=== PATIENT | female | born 1995 | race Caucasian/White ===

== ENCOUNTER 2018-05-23 | Emergency (ER) | payer OTHER ==
[~2018-05-23] VITALS: Ht 154.9 cm; Wt 50.0 kg
[2018-05-23 00:08] VITALS: BP 129/93
--- NOTE | 2018-05-23 00:15 | NUR ---
PT AMBULATED TO BED 11
--- NOTE | 2018-05-23 00:18 | NUR ---
PT AMBULATED TO THE RESTROOM WITH STEADY GAIT
--- NOTE | 2018-05-23 00:21 | NUR ---
22 YO F BIB SELF FOR URINARY BURNING AND FREQUENCY X1WK. PT DENIES ANY LBP. ER MD MADE AWARE, WILL CONTINUE TO MONITOR
--- NOTE | 2018-05-23 00:24 | NUR ---
DR LIM AT BEDSIDE FOR PT EVALUATION
[2018-05-23] MEDS ORDERED: PHENAZOPYRIDINE 100 MG TAB PO ONE (00:35)
[2018-05-23] MEDS ORDERED: SULFAMETH/TRIMETH DS 800/160MG 1 TAB PO ONE (00:35)
--- NOTE | 2018-05-23 00:57 | NUR ---
Patient discharged with v/s stable. Written and verbal after care instructions given and explained. Patient alert, oriented and verbalized understanding of instructions. Ambulatory with steady gait. All questions addressed prior to discharge. ID band removed. Patient advised to follow up with PMD. Rx of PYRIDIUM, BACTRIM given. Patient educated on indication of medication including possible reaction and side effects. Opportunity to ask questions provided and answered.
[2018-05-23 01:01] VITALS: BP 124/79
== END 2018-05-23 00:57 | disposition home or self-care (01) ==
LOC: MED
DX: N39.0 Urinary tract infection, site not specified (principal)
CPT/HCPCS: 81002; 81025; 96374; 96375; 99283; 99285

== ENCOUNTER 2018-08-03 17:28 | Inpatient (IN) | payer OTHER ==
[~2018-08-03] VITALS: Ht 154.9 cm; Wt 49.9 kg
[2018-08-03 17:40] VITALS: BP 144/73
[2018-08-03] MEDS ORDERED: NACL 0.9% 1,000 ML IV ONE (18:10)
[2018-08-03] MEDS ORDERED: BOWEL EVACUANT DRINK 4,000 ML PDS PO ONE (18:10)
[2018-08-03 18:37] LABS: BASOPHILS # (AUTO) 0.1 K/uL (0.00-0.22); BASOPHILS % (AUTO) 0.9 % (0.0-2.0); EOSINOPHILS # (AUTO) 0.1 K/uL (0-0.4); EOSINOPHILS % (AUTO) 1.3 % (0.0-4.0); HEMATOCRIT 43.5 % (36-48); HEMOGLOBIN 14.6 g/dL (12.0-16.0); LYMPHOCYTES # (AUTO) 1.8 K/uL (2.5-16.5); LYMPHOCYTES % (AUTO) 29.3 % (20.5-51.1); MEAN CORPUSCULAR HEMOGLOBIN 32 pg (27-31); MEAN CORPUSCULAR HGB CONC 34 g/dL (33-37); MEAN CORPUSCULAR VOLUME 94.7 fL (80-94); MONOCYTES # (AUTO) 0.5 K/uL (0.8-1.0); MONOCYTES % (AUTO) 7.4 % (1.7-9.3); NEUTROPHILS # (AUTO) 3.8 K/uL (1.8-7.7); NEUTROPHILS % (AUTO) 61.1 % (42.2-75.2); PLATELET COUNT (AUTO) 244 K/uL (140-450); RED BLOOD CELL COUNT(AUTO) 4.59 MIL/uL (4.20-5.40); RED CELL DISTRIBUTION WIDTH 12.5 % (11.6-13.7); WHITE BLOOD COUNT (AUTO) 6.3 K/uL (4.8-10.8)
[2018-08-03 18:52] LABS: APPEARANCE,URINE SL CLOUDY (CLEAR); BILIRUBIN,URINE NEGATIVE (NEGATIVE); BLOOD, URINE 2+ (NEGATIVE); COLOR,URINE YELLOW (YELLOW); LEUKOCYTE ESTERASE ,URINE 2+ (NEGATIVE); NITRITE, URINE NEGATIVE (NEGATIVE); PH,URINE 6.5 (5.0-9.0); UGLUCOSE NEGATIVE (NEGATIVE)
[2018-08-03 18:59] LABS: RBC,URINE 20-50 /HPF (0-5); WBC,URINE TOO MANY TO COUNT /HPF (0-5)
[2018-08-03 19:03] LABS: BARBITURATE, URINE NEGATIVE ng/ml (NEG <=200); BENZODIAZEPINE, URINE NEGATIVE ng/mL (NEG <=200); CANNABINOID, URINE NEGATIVE ng/mL (NEG <=50); COCAINE, URINE NEGATIVE ng/mL (NEG <=300); OPIATE, URINE NEGATIVE ng/mL (NEG <=2000); PHENCYCLIDINE SCREEN,URINE NEGATIVE ng/mL (NEG <=25)
[2018-08-03 19:23] LABS: HCG,QUANTITATIVE < 1 mIU/mL (0-6)
[2018-08-03 19:26] LABS: ANION GAP 10.5 (8-16); CARBON DIOXIDE 26.3 mmol/L (21-32); CHLORIDE 106 mmol/L (98-107); CREATININE 0.7 mg/dL (0.6-1.3); GLUCOSE 96 mg/dL (74-106); POTASSIUM 3.8 mmol/L (3.5-5.1); SODIUM SERUM 139 mmol/L (136-145); TOTAL BILIRUBIN 0.4 mg/dL (0.0-1.0); UREA NITROGEN, BLOOD 6 mg/dL (7-18)
[2018-08-03 19:27] LABS: ACETAMINOPHEN < 0.5 ug/ml (10-30); ALBUMIN 4.2 g/dL (3.4-5.0); ASPARTATE AMINOTRANSFERASE 14 U/L (15-37); SALICYLATE < 2.8 mg/dL (2.8-20.0)
[2018-08-03 19:36] LABS: GFR ARICAN-AMERICAN 134 mL/min (>90)
[2018-08-03] MEDS ORDERED: MORPHINE SULFATE 4 MG/ML SYR IVP PRN (20:25)
[2018-08-03] MEDS ORDERED: LORazepam 2 MG/ML VIAL IM/IVP PRN (20:25)
[2018-08-03] MEDS ORDERED: DOCUSATE SODIUM 100 MG GELCAP PO PRN (20:25)
[2018-08-03] MEDS ORDERED: ZOLPIDEM 5 MG TAB PO PRN (20:25)
[2018-08-03] MEDS ORDERED: ACETAMINOPHEN 325 MG TAB PO PRN (20:25)
[2018-08-03] MEDS ORDERED: ONDANSETRON 4 MG/2 ML VIAL IM/IVP PRN (20:25)
[2018-08-03] MEDS ORDERED: HYDROcodone/APAP 5/325 MG 1 TAB TAB PO PRN (20:25)
[2018-08-03 21:00] VITALS: BP 118/84
[2018-08-03] MEDS: NACL 0.9% 1,000 ML IV SCH (21:20)
[2018-08-03 21:22] LABS: PROTHROMBIN TIME 10.4 secs (10.8-13.4)
[2018-08-03 21:31] LABS: CHOL/HDL RATIO 2.4 (1-4.5); FREE T4 (FREE THYROXINE) 1.1 ng/dL (0.76-1.46); PHOSPHORUS 2.3 mg/dL (2.5-4.9); THYROID STIMULATING HORMONE 1.01 uIU/mL (0.34-3.74)
[2018-08-03] MEDS ORDERED: cefTRIAXone 1,000 MG VIAL ONE ×2 (22:18)
[2018-08-03 23:56] LABS: ANION GAP 11.7 (8-16); CARBON DIOXIDE 26.1 mmol/L (21-32); CREATININE 0.7 mg/dL (0.6-1.3); POTASSIUM 3.8 mmol/L (3.5-5.1)
[2018-08-04] VITALS: BP 118/77
[2018-08-04 02:15] LABS: ANION GAP 9.5 (8-16); CARBON DIOXIDE 26.8 mmol/L (21-32); POTASSIUM 3.3 mmol/L (3.5-5.1)
[2018-08-04 02:16] LABS: CREATININE 0.6 mg/dL (0.6-1.3)
[2018-08-04] MEDS: NACL 0.9% 1,000 ML IV SCH ×3 (03:02→17:00)
[2018-08-04 04:00] VITALS: BP 102/67
[2018-08-04] MEDS ORDERED: POTASSIUM CHLORIDE 10 MEQ TABER PO ONE (04:30)
[2018-08-04 06:06] LABS: BASOPHILS % (AUTO) 0.5 % (0.0-2.0); EOSINOPHILS # (AUTO) 0.2 K/uL (0-0.4); HEMOGLOBIN 12.9 g/dL (12.0-16.0); LYMPHOCYTES # (AUTO) 2.3 K/uL (2.5-16.5); LYMPHOCYTES % (AUTO) 28.2 % (20.5-51.1); MEAN CORPUSCULAR HEMOGLOBIN 32 pg (27-31); MEAN CORPUSCULAR HGB CONC 33 g/dL (33-37); MEAN CORPUSCULAR VOLUME 95.8 fL (80-94); MONOCYTES # (AUTO) 0.7 K/uL (0.8-1.0); MONOCYTES % (AUTO) 8.2 % (1.7-9.3); NEUTROPHILS # (AUTO) 4.9 K/uL (1.8-7.7); NEUTROPHILS % (AUTO) 61.1 % (42.2-75.2); PLATELET COUNT (AUTO) 214 K/uL (140-450); RED BLOOD CELL COUNT(AUTO) 4.07 MIL/uL (4.20-5.40); RED CELL DISTRIBUTION WIDTH 12.5 % (11.6-13.7); WHITE BLOOD COUNT (AUTO) 8.1 K/uL (4.8-10.8)
[2018-08-04] MEDS: SODIUM PHOS / POTASSIUM PHOS 1 PKT PDR PO SCH ×3 (06:46→17:00)
[2018-08-04 07:12] LABS: ANION GAP 10.7 (8-16); CARBON DIOXIDE 25.9 mmol/L (21-32); POTASSIUM 3.6 mmol/L (3.5-5.1)
[2018-08-04 07:13] LABS: CREATININE 0.7 mg/dL (0.6-1.3); MAGNESIUM 1.9 mg/dL (1.8-2.4); PHOSPHORUS 3.2 mg/dL (2.5-4.9)
[2018-08-04] MEDS ORDERED: MORPHINE SULFATE 4 MG/ML SYR IVP PRN (07:32)
[2018-08-04 08:00] VITALS: BP 102/56
[2018-08-04] MEDS: SUCRALFATE 1 GM TAB PO SCH ×4 (09:36→20:37)
[2018-08-04] MEDS: LACTOBACILLUS RHAMNOSUS GG 1 EACH CAP PO SCH (09:36)
[2018-08-04 11:01] LABS: ANION GAP 12.2 (8-16); CARBON DIOXIDE 22.7 mmol/L (21-32); POTASSIUM 3.9 mmol/L (3.5-5.1)
[2018-08-04 11:02] LABS: CREATININE 0.7 mg/dL (0.6-1.3)
[2018-08-04 12:00] VITALS: BP 110/62
[2018-08-04 16:00] VITALS: BP 101/60
[2018-08-04 20:00] VITALS: BP 107/67
[2018-08-05] VITALS: BP 97/56
[2018-08-05] MEDS: NACL 0.9% 1,000 ML IV SCH ×3 (01:07→13:53)
[2018-08-05 04:00] VITALS: BP 100/44
[2018-08-05] MEDS: SODIUM PHOS / POTASSIUM PHOS 1 PKT PDR PO SCH ×3 (06:34→15:50)
[2018-08-05 07:27] LABS: BASOPHILS # (AUTO) 0.1 K/uL (0.00-0.22); BASOPHILS % (AUTO) 0.8 % (0.0-2.0); EOSINOPHILS # (AUTO) 0.2 K/uL (0-0.4); EOSINOPHILS % (AUTO) 2.5 % (0.0-4.0); HEMATOCRIT 38.5 % (36-48); HEMOGLOBIN 12.6 g/dL (12.0-16.0); LYMPHOCYTES # (AUTO) 3.3 K/uL (2.5-16.5); LYMPHOCYTES % (AUTO) 47.4 % (20.5-51.1); MEAN CORPUSCULAR HEMOGLOBIN 32 pg (27-31); MEAN CORPUSCULAR HGB CONC 33 g/dL (33-37); MONOCYTES # (AUTO) 0.4 K/uL (0.8-1.0); MONOCYTES % (AUTO) 5.3 % (1.7-9.3); NEUTROPHILS # (AUTO) 3.1 K/uL (1.8-7.7); PLATELET COUNT (AUTO) 198 K/uL (140-450); RED BLOOD CELL COUNT(AUTO) 3.97 MIL/uL (4.20-5.40); RED CELL DISTRIBUTION WIDTH 12.7 % (11.6-13.7); WHITE BLOOD COUNT (AUTO) 6.9 K/uL (4.8-10.8)
[2018-08-05 08:00] VITALS: BP 97/61
[2018-08-05 08:23] LABS: CARBON DIOXIDE 24.9 mmol/L (21-32); CREATININE 0.6 mg/dL (0.6-1.3); POTASSIUM 3.9 mmol/L (3.5-5.1)
[2018-08-05] MEDS: LACTOBACILLUS RHAMNOSUS GG 1 EACH CAP PO SCH (08:52)
[2018-08-05] MEDS: SUCRALFATE 1 GM TAB PO SCH ×4 (08:52→20:12)
[2018-08-05 08:59] LABS: MAGNESIUM 1.7 mg/dL (1.8-2.4); PHOSPHORUS 3.8 mg/dL (2.5-4.9)
[2018-08-05 12:00] VITALS: BP 97/56
[2018-08-05 16:00] VITALS: BP 107/69
[2018-08-05] MEDS ORDERED: LACTOBACILLUS RHAMNOSUS GG 1 EACH CAP PO SCH (17:35)
[2018-08-05] MEDS: ARIPiprazole 10 MG TAB PO SCH (18:45)
[2018-08-05 20:00] VITALS: BP 114/75
[2018-08-05] MEDS: MAGNESIUM OXIDE 400 MG TAB PO SCH (20:12)
[2018-08-06] VITALS: BP 118/59
[2018-08-06 04:00] VITALS: BP 110/70
[2018-08-06 06:49] LABS: BASOPHILS % (AUTO) 0.6 % (0.0-2.0); EOSINOPHILS # (AUTO) 0.1 K/uL (0-0.4); EOSINOPHILS % (AUTO) 2.2 % (0.0-4.0); HEMATOCRIT 40.7 % (36-48); HEMOGLOBIN 13.6 g/dL (12.0-16.0); LYMPHOCYTES # (AUTO) 2.6 K/uL (2.5-16.5); LYMPHOCYTES % (AUTO) 38.1 % (20.5-51.1); MEAN CORPUSCULAR HEMOGLOBIN 32 pg (27-31); MEAN CORPUSCULAR HGB CONC 34 g/dL (33-37); MEAN CORPUSCULAR VOLUME 95.1 fL (80-94); MONOCYTES # (AUTO) 0.5 K/uL (0.8-1.0); MONOCYTES % (AUTO) 6.7 % (1.7-9.3); NEUTROPHILS # (AUTO) 3.6 K/uL (1.8-7.7); NEUTROPHILS % (AUTO) 52.4 % (42.2-75.2); PLATELET COUNT (AUTO) 217 K/uL (140-450); RED BLOOD CELL COUNT(AUTO) 4.28 MIL/uL (4.20-5.40); RED CELL DISTRIBUTION WIDTH 12.3 % (11.6-13.7); WHITE BLOOD COUNT (AUTO) 6.8 K/uL (4.8-10.8)
[2018-08-06 07:17] LABS: ANION GAP 10.6 (8-16); CARBON DIOXIDE 27.4 mmol/L (21-32); CREATININE 0.6 mg/dL (0.6-1.3)
[2018-08-06 07:32] LABS: PHOSPHORUS 3.6 mg/dL (2.5-4.9)
[2018-08-06 08:00] VITALS: BP 105/69
[2018-08-06] MEDS: SODIUM PHOS / POTASSIUM PHOS 1 PKT PDR PO SCH ×3 (08:09→17:36)
[2018-08-06] MEDS: SUCRALFATE 1 GM TAB PO SCH ×4 (08:09→20:47)
[2018-08-06] MEDS: ARIPiprazole 10 MG TAB PO SCH (08:09)
[2018-08-06] MEDS: MAGNESIUM OXIDE 400 MG TAB PO SCH ×2 (08:11→20:47)
[2018-08-06 12:00] VITALS: BP 103/58
[2018-08-06] MEDS ORDERED: ONDANSETRON 4 MG TAB PO PRN (12:45)
[2018-08-06 16:00] VITALS: BP 129/82
[2018-08-06] MEDS: HYDROCORTISONE 1% CRM 30 GM TUBE TP SCH (21:00)
[2018-08-07] VITALS: BP 116/72
[2018-08-07 08:00] VITALS: BP 121/79
[2018-08-07] MEDS ORDERED: TETRAHYDROZOLINE 0.05% OP 15 ML BTL OP PRN (09:03)
[2018-08-07] MEDS ORDERED: ONDANSETRON 4 MG ODT SL PRN (09:20)
[2018-08-07] MEDS: SUCRALFATE 1 GM TAB PO SCH ×4 (09:35→20:33)
[2018-08-07] MEDS: MAGNESIUM OXIDE 400 MG TAB PO SCH ×2 (09:35→20:33)
[2018-08-07] MEDS: ARIPiprazole 10 MG TAB PO SCH (09:35)
[2018-08-07] MEDS: HYDROCORTISONE 1% CRM 30 GM TUBE TP SCH ×2 (09:36→20:33)
[2018-08-07 16:00] VITALS: BP 109/70
[2018-08-07 23:40] VITALS: BP 116/78
[2018-08-08 01:10] VITALS: BP 116/78
[2018-08-08] MEDS ORDERED: ABI10 PO (01:21)
[2018-08-08 02:16] VITALS: BP 116/78
== END 2018-08-08 02:05 | disposition designated cancer center or children's hospital (05) | DRG 917 ==
LOC: MED 17:28 → MTU 20:25
PROVIDERS: ADMIT General Practice; ATTEND General Practice
DX: T56.892A Toxic effect of other metals, intentional self-harm, initial encounter (principal); G92 Toxic encephalopathy; R45.851 Suicidal ideations; N39.0 Urinary tract infection, site not specified; E87.8 Other disorders of electrolyte and fluid balance, not elsewhere classified; E83.41 Hypermagnesemia; E83.39 Other disorders of phosphorus metabolism; F31.9 Bipolar disorder, unspecified; F41.9 Anxiety disorder, unspecified; T39.312A Poisoning by propionic acid derivatives, intentional self-harm, initial encounter; E87.6 Hypokalemia; I10 Essential (primary) hypertension; Y92.89 Other specified places as the place of occurrence of the external cause; Z91.19 Patient's noncompliance with other medical treatment and regimen
CPT/HCPCS: 36415; 71045; 80048; 80053; 80178; 80305; 81001; 82150; 83036; 83605; 83690; 83735; 83880; 84100; 84439; 84443; 84484; 84702; 85025; 85610; 85730; 87081; 87086; 93005; 96360; 99285; G0480; G0482; J0696; J2405; J7030; J7060; Q0092; Q0162

== ENCOUNTER 2021-05-29 04:02 | Emergency (ER) | payer BC, OTHER ==
[~2021-05-29] VITALS: Ht 154.9 cm; Wt 53.5 kg
[~2021-05-29 04:02] MED LIST: ABI10 PO
[2021-05-29 04:06] VITALS: BP 114/89
--- NOTE | 2021-05-29 04:13 | NUR ---
bend examining patient.
[2021-05-29] MEDS ORDERED: ACETAMINOPHEN EXTRA STRENGTH 500 MG TAB PO ONE (04:15)
--- NOTE | 2021-05-29 04:15 | NUR ---
patient to bed 8 ambulatory with urine cup in hand for urine collection
[2021-05-29] MEDS ORDERED: cefTRIAXone 1,000 MG in LIDOCAINE MPF 1% 2.1 ML IM ONE (04:25)
[2021-05-29] MEDS ORDERED: LIDOCAINE MPF 1% 5 ML ONE (04:40)
[2021-05-29] MEDS ORDERED: cefTRIAXone 1,000 MG VIAL ONE (04:40)
[2021-05-29] MEDS ORDERED: PHEN-1877 PO (04:43)
[2021-05-29] MEDS ORDERED: CEPH500C16 PO (04:43)
[2021-05-29 05:00] VITALS: BP 114/89
--- NOTE | 2021-05-29 05:00 | NUR ---
Patient discharged with v/s stable. Written and verbal after care instructions given and explained. Patient alert, oriented and verbalized understanding of instructions. Ambulatory with steady gait. All questions addressed prior to discharge. ID band removed. Patient advised to follow up with PMD. Rx of CEPHALEXIN, PYRIDIUM given. Patient educated on indication of medication including possible reaction and side effects. Opportunity to ask questions provided and answered.
--- NOTE | 2021-05-29 05:18 | NUR ---
The patient's care was reviewed and supervised by JESUS SO RN.
== END 2021-05-29 05:00 | disposition home or self-care (01) ==
LOC: MED 04:02
DX: N39.0 Urinary tract infection, site not specified (principal)
CPT/HCPCS: 81002; 81025; 87086; 96372; 99283; J0696; J2001